=== PATIENT | female | born 2000 | race Caucasian/White ===

== ENCOUNTER 2024-10-20 11:01 | Emergency (ER) | payer SELFPAY ==
[~2024-10-20] VITALS: Ht 182.9 cm; Wt 73.0 kg
[2024-10-20 11:14] VITALS: BP 149/97; PULSE 79; RESP 18; TEMP 36.6; O2SAT 97
[2024-10-20 12:04] LABS: BASOPHILS % 0.5 % (0.0-2.0); EOSINOPHILS % 0.2 % (0.0-5.0); HEMATOCRIT. 43.6 % (36.0-48.0); HEMOGLOBIN. 14.5 g/dL (12.0-16.0); LYMPHOCYTES % 8.4 % (20.0-50.0); MEAN CORPUSCULAR HEMOGLOBIN 31.7 pg (28.0-32.0); MEAN CORPUSCULAR HGB CONC 33.2 g/dL (31.0-37.0); MEAN CORPUSCULAR VOLUME 95.6 fL (81.0-99.0); MEAN PLATELET VOLUME 7.7 fl (7.4-10.4); MONOCYTES % 5.5 % (2.0-8.0); NEUTROPHILS % 85.4 % (40.0-76.0); PLATELET 462 x1000/uL (130-400); RED BLOOD CELL COUNT 4.57 mill/uL (4.2-5.4); RED CELL DISTRIBUTION WIDTH 13.3 % (11.6-14.6); WHITE BLOOD COUNT 17.9 x1000/uL (4.5-11.0)
[2024-10-20 12:12] LABS: CHLORIDE 98 mEq/L (98-107); POTASSIUM 3.5 mEq/L (3.5-5.1); SODIUM 136 mEq/L (136-145)
[2024-10-20 12:13] LABS: CARBON DIOXIDE 20 mEq/L (21-32)
[2024-10-20 12:14] LABS: CALCIUM 10.1 mg/dL (8.7-10.4)
[2024-10-20 12:18] LABS: GLUCOSE 90 mg/dL (70-105); UREA NITROGEN BLOOD 12 mg/dL (9-23)
[2024-10-20 12:30] LABS: HCG SCREEN NEGATIVE
[2024-10-20] MEDS ORDERED: ONDANSETRON 4MG ODT PO ONE (13:00)
[2024-10-20] MEDS: METOCLOPRAMIDE HCL 10MG/2ML VIAL IM ONE (13:10)
[2024-10-20] MEDS: ONDANSETRON HCL 4MG/2ML INJ IM ONE (13:30)
[2024-10-20 13:56] LABS: CLARITY URINE CLEAR (CLEAR); COLOR URINE DARK YELLOW (YELLOW); GLUCOSE URINE NEGATIVE (NEGATIVE); KETONES URINE 4+ (NEGATIVE); LEUKOCYTE ESTERASE URINE TRACE (NEGATIVE); NITRITE URINE NEGATIVE (NEGATIVE); OCCULT BLOOD URINE 2+ (NEGATIVE); PH URINE 5.5 (4.5-8.0); PROTEIN URINE 2+ (NEGATIVE); SPECIFIC GRAVITY URINE 1.038 (1.005-1.030)
[2024-10-20 14:19] LABS: BACTERIA URINE FEW; SQUAMOUS EPITHELIAL CELL URINE FEW /lpf (RARE/1+); YEAST URINE NONE SEEN
== END 2024-10-20 13:43 | disposition home or self-care (01) ==
LOC: ER 11:01
DX: R11.2 Nausea with vomiting, unspecified (principal); R10.84 Generalized abdominal pain
CPT/HCPCS: 99284; 80048; 81003; 84703; 83690; 85025; 36415; 96372; Q0162; J2765; J2405